=== PATIENT | male | born 1990 | race African-American/Black ===

== ENCOUNTER 2017-02-28 13:37 | Emergency (ER) | payer OTHER ==
[~2017-02-28] VITALS: Ht 177.8 cm; Wt 79.4 kg
[2017-02-28] MEDS ORDERED: DEPO-TESTO100 MG/1 M IM (15:13)
[2017-02-28 17:49] VITALS: BP 129/89
== END 2017-02-28 17:49 | disposition short-term general hospital (02) ==
LOC: ER 13:37
DX: H40.212 Acute angle-closure glaucoma, left eye (principal); F43.10 Post-traumatic stress disorder, unspecified; F10.99 Alcohol use, unspecified with unspecified alcohol-induced disorder